=== PATIENT | female | born 1995 | race African-American/Black ===

== ENCOUNTER 2019-02-28 10:46 | Outpatient (CLI) | payer OTHER ==
[~2019-02-28] VITALS: Ht 160 cm; Wt 62.0 kg
[2019-02-28 11:22] VITALS: BP 121/70; PULSE 61; TEMP 99
--- NOTE | 2019-02-28 14:00 | NUR ---
Pt returned to [facility] per w/c s/p TTT. Pt alea TTT with minimal symptoms per Kira camarillo RN.
[2019-02-28 14:29] VITALS: BP 126/82; PULSE 66; TEMP 98.1
--- NOTE | 2019-02-28 15:20 | NUR ---
Pt has ambulated and alea PO intake s n/v.
--- NOTE | 2019-02-28 15:50 | NUR ---
Pt discharged per w/c by nurse with friend.
== END 2019-02-28 16:29 | disposition home or self-care (01) ==
LOC: COL.CAR 10:46
DX: R55 Syncope and collapse (principal); J45.909 Unspecified asthma, uncomplicated; Z82.49 Family history of ischemic heart disease and other diseases of the circulatory system

== ENCOUNTER → 2020-02-27 | Outpatient (CLI) | payer OTHER | LOC: COL.RAD 13:49 | DX: G43.009 Migraine without aura, not intractable, without status migrainosus (principal); G44.84 Primary exertional headache ==